=== PATIENT | female | born 1965 | race Caucasian/White ===

== ENCOUNTER → 2017-08-22 | Day surgery (SDC) | payer BC ==
[~2017-08-22] VITALS: Ht 162.5 cm; Wt 68.0 kg
[~2017-08-22] MED LIST: CELEXA20 MG PO; COZAAR50 M1 PO; FLONASE ALLERG9.9 ML NAS; LAMICTAL25 MG PO; OMEPRAZOLE20 M2 PO; Synthroid,Levo25 MCG PO
--- NOTE | ~2017-08-22 | O ---
[place], [place] OPERATIVE NOTE NAME: SONAM MENDOZA UNIT #: [id number] ROOM: DOCTOR: PITER PENA MD BIRTHDATE: [birth year] DOS: 08/22/2017 INDICATIONS: The patient has presented with dysphagia, choking on solid foods. The patient has scleroderma history. ALLERGIES: PREDNISONE AND NOVOCAIN. FAMILY HISTORY: Noncontributory. PAST SURGICAL HISTORY: Cholecystectomy, knee, bowel repair, lower back. PAST MEDICAL HISTORY: Hypothyroidism, scleroderma, reflux, Raynaud's, Sjogren. SOCIAL HISTORY: Nonsmoker, nonalcohol consumer. PROCEDURE: Today's procedure part of investigation is panendoscopy plus balloon dilation of esophagus for upper part plus biopsy of the antrum. PREMEDICATION: Versed and Diprivan. SCOPE: Olympus forward-viewing gastroscope Q10 video. REPORT: After putting the patient in the left lateral position and after application of lubricant to the scope, the scope was introduced. Thereafter, under direct visualization, I advanced through the length of the esophagus without difficulty into gastric pouch, into duodenal bulb. Antral erosions were identified. Biopsy was obtained. A balloon size 20 was introduced into the gastric pouch and orally extracted. Highest resistance, particularly in cervical esophagus was noticed. The patient extubated, tolerated the procedure well. IMPRESSION: Benign esophageal stricture, status post balloon dilation, gastritis, status post biopsy. PLAN AND DISCUSSION: We are going to continue with omeprazole antireflux and clinical reassessment. Thank you very much indeed for your kind referral. [place], [place] OPERATIVE NOTE NAME: SONAM MENDOZA UNIT #: [id number] ROOM: DOCTOR: PITER PENA MD BIRTHDATE: [birth year] PITER PENA MD CM:OPRECORD:OPERATIVE NOTE [id number] [id number] PITER PENA MD 08/22/17 1348 interface
[2017-08-22 12:14] VITALS: BP 180/64
[2017-08-22 12:58] VITALS: BP 101/41
[2017-08-22 13:08] VITALS: BP 89/39
[2017-08-22 13:30] VITALS: BP 139/63
== END | disposition home or self-care (01) ==
LOC: SDC 08-19 13:15
DX: K29.50 Unspecified chronic gastritis without bleeding (principal); K22.2 Esophageal obstruction; E03.9 Hypothyroidism, unspecified; K21.9 Gastro-esophageal reflux disease without esophagitis; I10 Essential (primary) hypertension; F41.9 Anxiety disorder, unspecified; F32.9 Major depressive disorder, single episode, unspecified; Z98.890 Other specified postprocedural states; Z90.49 Acquired absence of other specified parts of digestive tract; Z88.8 Allergy status to other drugs, medicaments and biological substances; Z82.49 Family history of ischemic heart disease and other diseases of the circulatory system

== ENCOUNTER → 2018-08-05 | Day surgery (SDC) | payer BC ==
[~2018-08-05] VITALS: Ht 162.5 cm; Wt 64.9 kg
--- NOTE | ~2018-08-05 | O ---
[place], [place] OPERATIVE NOTE [id number] UNIT #: [id number] ROOM: DOCTOR: JEAN HERRERADORISDADEVILLEWHITLEY BIRTHDATE: [birth year] DOS: 08/05/2018 INDICATION FOR PROCEDURE: This is a 53-year-old patient who has presented with a chief complaint of dysphagia, dyspepsia, history of scleroderma, autoimmune hepatitis. PAST MEDICAL HISTORY: Hypothyroidism. PAST SURGICAL HISTORY: Back and knee cholecystectomy, right hand and skin carcinoma. MEDICATIONS: List has been reviewed. The patient is on omeprazole 40 mg daily, Celexa, Synthroid, and Flonase. ALLERGIES: PREDNISONE AND NOVOCAIN. FAMILY HISTORY: Noncontributory. SOCIAL HISTORY: Nonsmoker, nonalcohol consumer. PROCEDURE: Today's procedure part of investigation is panendoscopy plus biopsy plus esophageal balloon dilation. PREMEDICATION: Propofol. SCOPE: Olympus forward-viewing gastroscope Q10 video. REPORT: After putting the patient in left lateral position and application of lubricant to the scope, the scope was introduced. Thereafter, under direct visualization, I advanced through the length of esophagus without difficulty. Esophagus, cervical, thoracic distally carefully examined. Gastric pouch was entered. Small hiatal hernia approximately 1 1/2 cm was noticed. Gastric pouch was entered. Gastritis seen. Scratch boo in the antrum was noticed. Early erosions noticed. Photographed. Antral biopsy obtained. Duodenal bulb, second and third part within normal limits. Air was suctioned out. At this stage, scope was withdrawn back to the gastric pouch. A balloon size 18 was inflated in the stomach and swept along the length of the esophagus. Upper esophageal stricture was dilated to size 17. The patient extubated and tolerated the procedure well. IMPRESSION: Benign esophageal stricture, status post balloon dilation, small hiatal hernia, gastritis, gastric erosions, status post biopsy. The patient on omeprazole 40 mg daily. She is still experiencing reflux symptomatology. She is to observe antireflux measures, elevation of the head of the bed 6 inch all time. Gaviscon as antacid of choice. As far as her omeprazole is concerned, she is symptomatic. Therefore, I am going to change her to esomeprazole and Nexium 40 mg 1 every day. We will see if she has any better relief of her dyspepsia and we will follow along as outpatient. I would consider addition of Reglan 5 mg q.a.c. dinner; however, I will check with her to see if she has had a trial of Reglan or not she is still under anesthesia. [place], [place] OPERATIVE NOTE NAME: SONAM MENDOZA UNIT #: [id number] ROOM: DOCTOR: JEAN HERRERA,PITER BIRTHDATE: [birth year] Thank you very much indeed for your kind referral. PITER PENA MD CM:OPRECORD:OPERATIVE NOTE [id number] PITER PENA MD 08/19/18 0704 interface
[2018-08-05 07:31] VITALS: BP 146/59
[2018-08-05 08:42] VITALS: BP 207/82
[2018-08-05 08:58] VITALS: BP 124/58
[2018-08-05 09:02] VITALS: BP 128/70
[2018-08-05 09:11] VITALS: BP 142/63
== END | disposition home or self-care (01) ==
LOC: SDC 07-30 08:45
DX: K29.50 Unspecified chronic gastritis without bleeding (principal); K22.2 Esophageal obstruction; K25.9 Gastric ulcer, unspecified as acute or chronic, without hemorrhage or perforation; K44.9 Diaphragmatic hernia without obstruction or gangrene; I10 Essential (primary) hypertension; E03.9 Hypothyroidism, unspecified; J45.909 Unspecified asthma, uncomplicated; G40.909 Epilepsy, unspecified, not intractable, without status epilepticus; K75.4 Autoimmune hepatitis; K21.9 Gastro-esophageal reflux disease without esophagitis; F41.8 Other specified anxiety disorders; Z90.49 Acquired absence of other specified parts of digestive tract; Z88.8 Allergy status to other drugs, medicaments and biological substances; Z98.890 Other specified postprocedural states; Z82.49 Family history of ischemic heart disease and other diseases of the circulatory system

== ENCOUNTER → 2019-07-21 | Day surgery (SDC) | payer BC ==
[~2019-07-21] VITALS: Ht 162.5 cm; Wt 65.8 kg
[~2019-07-21] MED LIST changes: +COZAAR25 M1 PO; +CYMBALTA20 M1 PO
--- NOTE | ~2019-07-21 | O ---
[place], [place] OPERATIVE NOTE NAME: SONAM MENDOZA UNIT #: [id number] ROOM: DOCTOR: PITER PENA MD BIRTHDATE: [birth year] DOS: 07/21/2019 INDICATIONS: This is a 54-year-old patient who has presented with gastroesophageal reflux, dyspepsia, cough, dysphagia, undergoing investigation. The patient with scleroderma. ALLERGIES: NOVOCAINE, LISINOPRIL, PREDNISONE. FAMILY HISTORY: Noncontributory. PAST SURGICAL HISTORY: Back and knee and cholecystectomy. PAST MEDICAL HISTORY: Scleroderma, hypothyroidism. PROCEDURE: Today's procedure part of investigation is panendoscopy plus balloon dilation of esophagus. PREMEDICATION: Propofol. SCOPE: Olympus forward-viewing gastroscope Q10 video. REPORT: After putting the patient in left lateral position and application of lubricant to the scope, the scope was introduced. Thereafter, under direct visualization, advanced through the length of esophagus without difficulty. Esophagus, cervical, thoracic distal carefully examined. The stricture of esophagus, particularly in upper esophagus was noticed. Hiatal hernia was then entered. Gastritis was seen. Antral erosion identified. Antral biopsy obtained. Duodenal bulb, second and third part within normal limit. The patient extubated back to the antrum. Biopsies obtained. Balloon size 20 was inserted in the gastric pouch and inflated to size 19, which was the maximum, which the patient could tolerate and esophagus was dilated. The patient tolerated the procedure well. IMPRESSION: Benign esophageal stricture, status post balloon dilation, hiatal hernia, gastritis, gastric erosions. PLAN AND DISCUSSION: We are going to continue with omeprazole 40 mg day. We are going to add Extra Strength, Gaviscon 1 at bedtime and during the day p.r.n., Antireflux measures. Thank you very much indeed for your kind referral. [place], [place] OPERATIVE NOTE NAME: SONAM MENDOZA UNIT #: [id number] ROOM: DOCTOR: PITER PENA MD BIRTHDATE: [birth year] PITER PENA MD CM:OPRECORD:OPERATIVE NOTE [id number] 1321 PITER PENA MD 07/21/19 1321 interface
[2019-07-21 10:36] VITALS: BP 167/58
[2019-07-21 11:25] VITALS: BP 165/71
[2019-07-21 11:40] VITALS: BP 160/64
[2019-07-21 11:55] VITALS: BP 165/71
== END | disposition home or self-care (01) ==
LOC: SDC 07-16 13:15
DX: K21.0 Gastro-esophageal reflux disease with esophagitis (principal); K29.50 Unspecified chronic gastritis without bleeding; K44.9 Diaphragmatic hernia without obstruction or gangrene; E03.9 Hypothyroidism, unspecified; I10 Essential (primary) hypertension; F41.9 Anxiety disorder, unspecified; F32.9 Major depressive disorder, single episode, unspecified; R05 Cough; Z90.49 Acquired absence of other specified parts of digestive tract; Z98.890 Other specified postprocedural states; Z79.899 Other long term (current) drug therapy; Z88.8 Allergy status to other drugs, medicaments and biological substances